=== PATIENT | female | born 1980 | race Caucasian/White ===

== ENCOUNTER 2017-02-06 08:05 | Emergency (ER) | payer OTHER ==
[2017-02-06] MEDS ORDERED: KETOROLAC 30 MG/ML 1 ML VIAL IVP STA (08:25)
[2017-02-06] MEDS ORDERED: SODIUM CHLORIDE 0.9% 1,000 ML IV STA (08:25)
--- NOTE | 2017-02-06 08:28 | ED ---
General Adult HPI - General Chief complaint: Back Pain/Injury Stated complaint: lower back pain Time Seen by Provider: 02/06/17 08:15 Source: patient, RN notes reviewed Mode of arrival: wheelchair Limitations: no limitations - History of Present Illness Initial comments: This a 36-year-old female presents emergency Department chief complaint left sided back pain that started on Friday. Patient states pain is progressively gotten worse. Patient's up on care physician yesterday and was told that she was constipated. Patient was given advice to take MiraLAX. She states started taking MiraLAX now she has very loose watery diarrhea and the symptoms seem to be worse. Patient denies any fever, chills. She states it is worse with movement but denies any known injury. Patient states that she did feel some numbness in her leg but denies any bowel or bladder and, so retention. Denies any saddle anesthesias. Patient states that she's had back pain the past but this feels different. She has no history kidney stones. She's had prior section but no other abdominal surgeries. Patient denies any nausea or vomiting. Patient denies chest pain, shortness of breath. She did take some iron for another day with no relief of the symptoms. - Related Data Home Medications Medication Instructions Recorded Confirmed Escitalopram [Lexapro] 10 mg PO DAILY 02/06/17 02/06/17 Ibuprofen [Motrin] 800 mg PO Q6HR PRN 02/06/17 02/06/17 Levothyroxine Sodium [Synthroid] 75 mcg PO DAILY 02/06/17 02/06/17 Polyethylene Glycol 3350 [Miralax] 17 gm PO DAILY PRN 02/06/17 02/06/17 Previous Rx's Medication Instructions Recorded Cyclobenzaprine [Flexeril] 10 mg PO TID PRN #15 tab 02/06/17 Hydrocodone/Acetaminophen [[place] 1 tab PO Q6HR PRN #20 tab 02/06/17 5-325] Allergies Allergy/AdvReac Type Severity Reaction Status Date / Time latex Allergy Unknown Rash/Hives, Verified 02/06/17 08:26 Itching Review of Systems ROS Statement: Those systems with pertinent positive or pertinent negative responses have been documented in the HPI. ROS Other: All systems not noted in ROS Statement are negative. Past Medical History Past Medical History: Thyroid Disorder Additional Past Medical History / Comment(s): ENVIRONMENTAL ALLERGIES. Ovarian cysts History of Any Multi-Drug Resistant Organisms: None Reported Past Surgical History: Section Additional Past Surgical History / Comment(s): DEVIATED SEPTUM 1996, INTRA VITRO FERTILIZATION X3. Past Anesthesia/Blood Transfusion Reactions: Motion Sickness, Postoperative Nausea & Vomiting (PONV) Additional Past Anesthesia/Blood Transfusion Reaction / Comment(s): STATES SHE HAD A SPINAL AND HAD PONV ,AND SEVERE SHAKING. Past Psychological History: Depression Smoking Status: Former smoker Past Alcohol Use History: None Reported Additional Past Alcohol Use History / Comment(s): NO ALCOHOL WITH . Past Drug Use History: None Reported General Exam General appearance: alert, in no apparent distress Head exam: Present: atraumatic, normocephalic, normal inspection Respiratory exam: Present: normal lung sounds bilaterally. Absent: respiratory distress, wheezes, rales, rhonchi, stridor Cardiovascular Exam: Present: regular rate, normal rhythm, normal heart sounds. Absent: systolic murmur, diastolic murmur, rubs, gallop, clicks GI/Abdominal exam: Present: soft, tenderness (Mild tenderness left side of the abdomen), normal bowel sounds. Absent: distended, guarding, rebound, rigid Back exam: Present: full ROM (With moderate discomfort), CVA tenderness (L), paraspinal tenderness. Absent: CVA tenderness (R), vertebral tenderness Neurological exam: Present: alert, oriented X3, CN II-XII intact Skin exam: Present: warm, dry, intact, normal color. Absent: rash Course Vital Signs 02/06/17 02/06/17 08:09 09:27 Temperature 97.4 F L 97.3 F L Pulse Rate 88 72 Respiratory 18 16 Rate Blood Pressure 115/71 125/71 O2 Sat by Pulse 95 95 Oximetry Medical Decision Making - Medical Decision Making 36-year-old female presents emergency Department chief complaint of back pain. Patient does have mild abdominal discomfort. She was told that she had constipation yesterday. X-ray does not reveal any constipation. Patient CT is unremarkable. Patient does have a hematuria though this is most likely related to her menstrual cycle. Patient is to have muscle skeletal back pain. Patient be discharged with muscle relaxer, pain medication. Return parameters were discussed. - Lab Data Result diagrams: 02/06/17 08:30 02/06/17 08:30 Lab Results 02/06/17 02/06/17 02/06/17 Range/Units 08:30 08:30 08:30 WBC 11.1 H (3.8-10.6) k/uL RBC 4.87 (3.80-5.40) m/uL Hgb 15.0 (11.4-16.0) gm/dL Hct 45.5 (34.0-46.0) % MCV 93.3 (80.0-100.0) fL MCH 30.8 (25.0-35.0) pg MCHC 32.9 (31.0-37.0) g/dL RDW 12.1 (11.5-15.5) % Plt Count 200 (150-450) k/uL Neutrophils % 80 % Lymphocytes % 12 % Monocytes % 5 % Eosinophils % 1 % Basophils % 0 % Neutrophils # 8.9 H (1.3-7.7) k/uL Lymphocytes # 1.4 (1.0-4.8) k/uL Monocytes # 0.6 (0-1.0) k/uL Eosinophils # 0.1 (0-0.7) k/uL Basophils # 0.0 (0-0.2) k/uL Sodium 142 (137-145) mmol/L Potassium 4.2 (3.5-5.1) mmol/L Chloride 110 H (98-107) mmol/L Carbon Dioxide 22 (22-30) mmol/L Anion Gap 10 mmol/L BUN 13 (7-17) mg/dL Creatinine 0.87 (0.52-1.04) mg/dL Est GFR (MDRD) Af Amer >60 (>60 ml/min/1.73 sqM) Est GFR (MDRD) Non-Af >60 (>60 ml/min/1.73 sqM) Glucose 103 H (74-99) mg/dL Calcium 9.7 (8.4-10.2) mg/dL Total Bilirubin 0.6 (0.2-1.3) mg/dL AST 19 (14-36) U/L ALT 27 (9-52) U/L Alkaline Phosphatase 90 (38-126) U/L Total Protein 8.1 (6.3-8.2) g/dL Albumin 4.4 (3.5-5.0) g/dL Amylase 74 (30-110) U/L Lipase 104 (23-300) U/L Urine Color Urine Appearance (Clear) Urine pH (5.0-8.0) Ur Specific [place] (1.001-1.035) Urine Protein (Negative) Urine Glucose (UA) (Negative) Urine Ketones (Negative) Urine Blood (Negative) Urine Nitrite (Negative) Urine Bilirubin (Negative) Urine Urobilinogen (<2.0) mg/dL Ur Leukocyte Esterase (Negative) Urine RBC (0-5) /hpf Urine WBC (0-5) /hpf Ur Squamous Epith Cells (0-4) /hpf Urine Mucus (None) /hpf Urine HCG, Qual Not Detected (Not Detectd) 02/06/17 Range/Units 08:30 WBC (3.8-10.6) k/uL RBC (3.80-5.40) m/uL Hgb (11.4-16.0) gm/dL Hct (34.0-46.0) % MCV (80.0-100.0) fL MCH (25.0-35.0) pg MCHC (31.0-37.0) g/dL RDW (11.5-15.5) % Plt Count (150-450) k/uL Neutrophils % % Lymphocytes % % Monocytes % % Eosinophils % % Basophils % % Neutrophils # (1.3-7.7) k/uL Lymphocytes # (1.0-4.8) k/uL Monocytes # (0-1.0) k/uL Eosinophils # (0-0.7) k/uL Basophils # (0-0.2) k/uL Sodium (137-145) mmol/L Potassium (3.5-5.1) mmol/L Chloride (98-107) mmol/L Carbon Dioxide (22-30) mmol/L Anion Gap mmol/L BUN (7-17) mg/dL Creatinine (0.52-1.04) mg/dL Est GFR (MDRD) Af Amer (>60 ml/min/1.73 sqM) Est GFR (MDRD) Non-Af (>60 ml/min/1.73 sqM) Glucose (74-99) mg/dL Calcium (8.4-10.2) mg/dL Total Bilirubin (0.2-1.3) mg/dL AST (14-36) U/L ALT (9-52) U/L Alkaline Phosphatase (38-126) U/L Total Protein (6.3-8.2) g/dL Albumin (3.5-5.0) g/dL Amylase (30-110) U/L Lipase (23-300) U/L Urine Color Yellow Urine Appearance Clear (Clear) Urine pH 5.0 (5.0-8.0) Ur Specific [place] 1.014 (1.001-1.035) Urine Protein Negative (Negative) Urine Glucose (UA) Negative (Negative) Urine Ketones Negative (Negative) Urine Blood Large H (Negative) Urine Nitrite Negative (Negative) Urine Bilirubin Negative (Negative) Urine Urobilinogen <2.0 (<2.0) mg/dL Ur Leukocyte Esterase Negative (Negative) Urine RBC 174 H (0-5) /hpf Urine WBC 2 (0-5) /hpf Ur Squamous Epith Cells 1 (0-4) /hpf Urine Mucus Rare H (None) /hpf Urine HCG, Qual (Not Detectd) Disposition Clinical Impression: Back pain, Musculoskeletal pain Disposition: HOME SELF-CARE Condition: Stable Instructions: Acute Low Back Pain (ED) Additional Instructions: Please return to the Emergency Department if symptoms worsen or any other concerns. Prescriptions: Cyclobenzaprine [Flexeril] 10 mg PO TID PRN #15 tab PRN Reason: Muscle Spasm Hydrocodone/Acetaminophen [[place] 5-325] 1 tab PO Q6HR PRN #20 tab PRN Reason: Pain Time of Disposition: 10:24
[2017-02-06 08:47] LABS: Basophils % (A) 0 %; CH 31.3; CHCM 33.7; Eosinophils # (A) 0.1 k/uL (0-0.7); Eosinophils % (A) 1 %; HCT 45.5 % (34.0-46.0); HDW 2.26; Luc # (Auto) 0.09; Luc % (Auto) 1; Lymphocytes # (A) 1.4 k/uL (1.0-4.8); Lymphocytes % (A) 12 %; MCH 30.8 pg (25.0-35.0); MCHC 32.9 g/dL (31.0-37.0); MCV 93.3 fL (80.0-100.0); Mean Platelet Volume 7.9; Monocytes # (A) 0.6 k/uL (0-1.0); Monocytes % (A) 5 %; Neutrophils # (A) 8.9 k/uL (1.3-7.7); Neutrophils % (A) 80 %; RBC 4.87 m/uL (3.80-5.40); RDW 12.1 % (11.5-15.5); WBC 11.1 k/uL (3.8-10.6); WBC (Perox) 11.14
[2017-02-06 08:57] LABS: ALT 27 U/L (9-52); AST 19 U/L (14-36); Alkaline Phosphatase 90 U/L (38-126); Amylase 74 U/L (30-110); Anion Gap 10 mmol/L; Blood Urea Nitrogen 13 mg/dL (7-17); Calcium 9.7 mg/dL (8.4-10.2); Carbon Dioxide 22 mmol/L (22-30); Chloride 110 mmol/L (98-107); Glucose 103 mg/dL (74-99); Non-African American GFR(MDRD) >60 (>60 ml/min/1.73 sqM); Potassium 4.2 mmol/L (3.5-5.1); Sodium 142 mmol/L (137-145); Total Bilirubin 0.6 mg/dL (0.2-1.3); Total Protein 8.1 g/dL (6.3-8.2)
[2017-02-06 09:28] VITALS: RESP 16
[2017-02-06 09:30] LABS: Appearance,Urine Clear (Clear); Bilirubin,Urine Negative (Negative); Glucose,Urine (UA) Negative (Negative); Ketones,Urine Negative (Negative); Leukocyte Esterase,Urine Negative (Negative); Mucus,Urine Rare /hpf; Nitrite,Urine Negative (Negative); Particle Count 1726; Protein,Urine Negative (Negative); RBC,Urine 174 /hpf (0-5); Specific Gravity,Urine 1.014 (1.001-1.035); Squamous Epithelial Cell,Urine 1 /hpf (0-4); UA Billing (MACRO vs. MICRO) MICRO; Urobilinogen,Urine <2.0 mg/dL (<2.0); WBC,Urine 2 /hpf (0-5)
--- NOTE | 2017-02-06 09:44 | XR ---
EXAMINATION TYPE: XR KUB DATE OF EXAM: 02/06/2017 9:20 AM CLINICAL DATA: 36-year-old female with abdominal pain, PHH COMPARISON: None FINDINGS: Lung bases are clear. No evidence for free intraperitoneal air. Some small air-fluid levels are noted within the colon. No dilated bowel. No significant stool burden . No suspicious calcifications. IMPRESSION: 1. No evidence of bowel obstruction or free intraperitoneal air. 2. Small air-fluid levels in the colon could represent enteritis or mild ileus.
--- NOTE | 2017-02-06 10:18 | CT ---
EXAMINATION TYPE: CT abdomen pelvis wo con DATE OF EXAM: 02/06/2017 10:03 AM COMPARISON: NONE INDICATION: Patient complains of low back pain and constipation. DLP: 992.3 mGycm, Automated exposure control for dose reduction was used. CONTRAST: None Study performed without Oral Contrast TECHNIQUE: Axial images were obtained from above the diaphragm to the pubic rami in the axial plane a t 5 mm thick sections. Reconstructed images are reviewed on the computer in the coronal plane. FINDINGS: Limited CT sections are obtained the lung bases. The lung bases are clear. CT ABDOMEN: Liver: Normal Spleen: Normal Pancreas: Normal Adrenal glands: The adrenal glands are normal. Gallbladder: Normal Kidneys: No masses are evident. No hydronephrosis is present. No cysts are present. No renal stone s are evident. Aorta: Normal Inferior vena cava: Normal. CT PELVIS: Loops of bowel within the abdomen and pelvis are normal. Lack oral contrast limits evaluation of bowel loops. No significant fecal retention is evident. Couple of diverticuli within the sigmoid colo n without acute diverticulitis. Appendix: Normal as visualized. Urinary bladder: Normal. Genitourinary structures: Uterus and ovaries are normal. Osseous structures: No suspicious lytic or sclerotic lesions. Lumbar spine has minimal degenerative d isc change L5-S1 IMPRESSIONS: 1. Unremarkable noncontrast CT abdomen and pelvis.
[2017-02-06 10:41] VITALS: BP 120/70; PULSE 70; TEMP 98
== END 2017-02-06 10:40 | disposition home or self-care (01) ==
LOC: EC 08:05
DX: M54.5 Low back pain (principal); R20.0 Anesthesia of skin; E07.9 Disorder of thyroid, unspecified; F32.9 Major depressive disorder, single episode, unspecified; Z87.891 Personal history of nicotine dependence; Z79.899 Other long term (current) drug therapy; Z91.040 Latex allergy status
CPT/HCPCS: 99284; 96374; 96361 ×2; 36415; 80053; 82150; 83690; 85025; 81001; 81025; 74000; 74176; J1885

== ENCOUNTER 2017-04-11 07:44 | Day surgery (SDC) | payer OTHER ==
[2017-04-09 14:35] VITALS: BMI 34.9
[~2017-04-11 07:44] MED LIST: LACTATED RINGERS 1,000 ML IV SCH
[2017-04-11 07:54] VITALS: TEMP 98
[2017-04-11] MEDS ORDERED: LACTATED RINGERS 1,000 ML IV ONE (07:54)
[2017-04-11] MEDS ORDERED: LIDOCAINE 1% 20 ML VIAL (10MG/ML) FOR IV START INTRADERMA ONE (08:03)
[2017-04-11] MEDS ORDERED: PROPOFOL 10 MG/ML 20 ML VIAL IV ONE (08:47)
[2017-04-11] MEDS ORDERED: MIDAZOLAM 2 MG/2 ML VIAL ONE (08:47)
[2017-04-11] MEDS ORDERED: LIDOCAINE 1% INJ 10MG/ML (20 ML MDV) ONE (08:47)
[2017-04-11] MEDS ORDERED: fentaNYL (PF) 50 MCG/ML 2 ML AMP ONE (08:47)
--- NOTE | 2017-04-11 09:00 | P.GSHP ---
History of Present Illness H&P Date: 04/11/17 Chief Complaint: Family history of colon cancer, constipation this is a 29-year-old female who presents today for colonoscopy. Patient re has hi family history of colon cancer. She's had issues with constipation. Past Medical History Past Medical History: Musculoskeletal Disorder, Thyroid Disorder Additional Past Medical History / Comment(s): Ovarian cysts History of Any Multi-Drug Resistant Organisms: None Reported Past Surgical History: Section Additional Past Surgical History / Comment(s): DEVIATED SEPTUM 1996, INTRA VITRO FERTILIZATION X3; pain procedures Past Anesthesia/Blood Transfusion Reactions: Motion Sickness, Postoperative Nausea & Vomiting (PONV) Additional Past Anesthesia/Blood Transfusion Reaction / Comment(s): STATES SHE HAD A SPINAL AND HAD PONV ,AND SEVERE SHAKING. Smoking Status: Current every day smoker - Past Family History Mother Family Medical History: No Reported History Medications and Allergies Home Medications Medication Instructions Recorded Confirmed Type Escitalopram [Lexapro] 10 mg PO DAILY 02/06/17 04/09/17 History Ibuprofen [Motrin] 800 mg PO Q6HR PRN 02/06/17 04/09/17 History Levothyroxine Sodium [Synthroid] 75 mcg PO DAILY 02/06/17 04/09/17 History Polyethylene Glycol 3350 [Miralax] 17 gm PO DAILY PRN 02/06/17 04/09/17 History Gabapentin [Neurontin] 200 mg PO TID 04/09/17 04/09/17 History Allergies Allergy/AdvReac Type Severity Reaction Status Date / Time latex Allergy Unknown Rash/Hives, Verified 04/09/17 13:10 Itching Surgical - Exam Vital Signs Temp Pulse Resp BP Pulse Ox 98.0 F 89 18 122/80 99 04/11/17 07:53 04/11/17 07:53 04/11/17 07:53 04/11/17 07:53 04/11/17 07:53 - General well developed, no distress - Eyes PERRL - ENT normal pinna - Neck no masses - Respiratory normal expansion - Cardiovascular Rhythm: regular - Abdomen Abdomen: soft, non tender Assessment and Plan Plan: test patient, family history: Cancer. We'll perform colonoscopy.
--- NOTE | 2017-04-11 09:10 | P.OP ---
Date of Procedure: 04/11/17 Preoperative Diagnosis: family history of colon cancer Constipation Postoperative Diagnosis: diverticulosis Procedure(s) Performed: on anoscopy Implants: Anesthesia: MAC Surgeon: Juan J Alvarenga Pathology: none sent Condition: stable Disposition: PACU Indications for Procedure: Operative Findings: Description of Procedure: the patient's placed on the endoscopy table in the lateral position. She received IV sedation. Digital rectal exam was performed which revealed no abnormalities. The flexible colonoscope was then placed patient anus passed throughout the entire colon. The ileocecal valve was visualized. The cecum, ascending and transverse colon appeared normal. In the descending; was mild diverticular changes. The scope was then brought back the rectum and this appeared normal. Scope was withdrawn for patient.
[2017-04-11 09:33] VITALS: BP 108/67; PULSE 69; RESP 16
== END 2017-04-11 09:53 | disposition home or self-care (01) ==
LOC: ORWHC2ENDO 07:44
PROVIDERS: ATTEND Surgery
DX: K57.30 Diverticulosis of large intestine without perforation or abscess without bleeding (principal); K59.00 Constipation, unspecified; Z80.0 Family history of malignant neoplasm of digestive organs; E07.9 Disorder of thyroid, unspecified; F17.200 Nicotine dependence, unspecified, uncomplicated; Z79.899 Other long term (current) drug therapy; Z91.040 Latex allergy status
CPT/HCPCS: 81025; 45378; J2250; J2001; J3010; J2704

== ENCOUNTER → 2017-04-28 | Outpatient (CLI) | payer OTHER ==
--- NOTE | 2017-04-28 09:44 | MM ---
Reason for exam: screening (asymptomatic). Baseline mammogram. History: Family history of breast cancer in maternal grandmother and breast cancer in paternal grandmother. Physical Findings: Nurse did not find any significant physical abnormalities on exam. MG Screening Mammo w CAD Bilateral CC and MLO view(s) were taken. There are scattered fibroglandular densities. No suspicious calcifications are seen. Nodularity upper inner left breast. These results were verbally communicated with the patient and result sheet given to the patient on 04/28/17. ASSESSMENT: Incomplete: need additional imaging evaluation, BI-RAD 0 RECOMMENDATION: Special view mammogram of the left breast. If lesion persists on supplemental views, image directed ultrasound is recommended. [facility] will attempt to contact patient to return for supplemental views and ultrasound if indicated.
--- NOTE | 2017-04-28 09:45 | MM ---
Reason for exam: additional evaluation requested from abnormal screening. History: Family history of breast cancer in maternal grandmother and breast cancer in paternal grandmother. Physical Findings: Breast exam preformed at baseline screening. MG Work Up Mamm w CAD LT LM, spot compression MLO, and spot compression CC view(s) were taken of the left breast. Nodularity persists in the upper inner quadrant left breast for which an ultrasound is recommended. These results were verbally communicated with the patient and result sheet given to the patient on 04/28/17. ASSESSMENT: Incomplete: need additional imaging evaluation, BI-RAD 0 RECOMMENDATION: Ultrasound of the left breast.
--- NOTE | 2017-04-28 09:47 | USB ---
Reason for exam: additional evaluation requested from abnormal screening. History: Family history of breast cancer in maternal grandmother and breast cancer in paternal grandmother. US Breast Workup Limited LT Left breast ultrasound demonstrates no cystic or solid lesion seen, because nodule persists on mammography stereo core biopsy recommended. These results were verbally communicated with the patient and result sheet given to the patient on 04/28/17. ASSESSMENT: Suspicious, BI-RAD 4 RECOMMENDATION: Stereotactic core biopsy of the left breast. Called Dr. Liao with mammographic findings and has scheduled an appointment for the patient for 05/02/17 at 2:[address] Alvarenga. PRELIMINARY REPORT CALLED AND FAXED TO DR. ALVARENGA ON 04/28/17 /TMP.
== END ==
LOC: RADMAMWWP 08:11
PROVIDERS: ATTEND Family Medicine
DX: Z12.31 Encounter for screening mammogram for malignant neoplasm of breast (principal); R92.8 Other abnormal and inconclusive findings on diagnostic imaging of breast
CPT/HCPCS: 76642; G0202; G0206

== ENCOUNTER → 2017-05-05 | Day surgery (SDC) | payer OTHER ==
[2017-05-05 13:56] VITALS: RESP 12; TEMP 98.5; BMI 34.9
[2017-05-05 14:36] VITALS: BP 111/70; PULSE 86
--- NOTE | 2017-05-05 15:38 | MM ---
EXAMINATION TYPE: MG stereo VAD BX LT DATE OF EXAM: 05/05/2017 COMPARISON: Previous mammogram dated 04/28/2017 CLINICAL HISTORY: Abnormal mammogram TECHNIQUE: Stereotactic guided core biopsy of left breast. FINDINGS: The procedure of stereotactic guided core biopsy was explained to the patient. Benefits, a lternatives, and risks were discussed. An informed consent was then obtained. [facility]. Shortness pathway was a CC approach. I performed the lo calization, then surgeon, Dr. Benitez performed the remainder of the procedure. A vacuum assisted b iopsy gun was used to obtain multiple core samples. The patient tolerated the procedure well without any immediate complication. The patient was kept in the radiology department for short stay after the procedure and then discharged home in stable condi tion. Targeted calcifications are identified in specimen mammogram. Post biopsy mammogram shows the clip to appear in satisfactory position relative to the targeted area of concern on the preprocedure images. IMPRESSION: SUCCESSFUL, UNCOMPLICATED STEREOTACTIC GUIDED CORE BIOPSY OF AREA OF CONCERN IN THE LEFT BREAST, FULL PATHOLOGY RESULTS TO FOLLOW.
--- NOTE | 2017-05-05 17:25 | P.OP ---
Date of Procedure: 05/05/17 Preoperative Diagnosis: Abnormal left mammogram Postoperative Diagnosis: Defer to pathology Procedure(s) Performed: Left breast core biopsy Implants: Anesthesia: JULIUS Surgeon: Juan J Alvarenga Pathology: other (Left breast core biopsy) Condition: stable Disposition: PACU Indications for Procedure: Operative Findings: Description of Procedure: The patient's placed in the mammotome table in the prone position. Her left breast up entirely by the radiologist. The breast was anesthetized 1% local Xylocaine. The needle was entered into the target area. Sequential core biopsies were performed. A clip was placed in the breast. Patient top procedure well.
== END ==
LOC: RADMAMWWP 13:25
PROVIDERS: ATTEND Surgery
DX: D24.2 Benign neoplasm of left breast (principal); R92.8 Other abnormal and inconclusive findings on diagnostic imaging of breast; N60.32 Fibrosclerosis of left breast; N64.89 Other specified disorders of breast; Z91.040 Latex allergy status
CPT/HCPCS: 88305; 19081; A4648

== ENCOUNTER → 2018-05-14 | Outpatient (CLI) | payer OTHER ==
--- NOTE | 2018-05-19 17:18 | ENG ---
ELECTRONYSTAGMOGRAM REPORT ATTENDING PHYSICIAN: Dr. Juan David Reed. VNG INDICATIONS: This is a 38-year-old female with vertigo and dizziness starting with a syncopal episode on 04/06/2018. Dizziness is improving. She has 1 spell per day, lasting for 1- 2 minutes at a time. Dizziness can be triggered by rolling over in bed and right or left, turning the head left to right, movements of the head. Denies any hearing loss. Has tinnitus in the right ear of a steady nature and fullness in both ears. VNG FINDINGS: SACCADES: Saccades shows intact peak velocities, accuracies and latencies. GAZE TEST: Gaze with fixation shows no nystagmus in any of the directions of gaze including centrally with vision denied. SINUSOIDAL TRACKING: Tracking shows no break-ups. OKN TEST: Optokinetic nystagmus shows no asymmetry. POSITION TESTING: Static position testing in 6 different positions with eyes open and then with vision denied and exhibits no nystagmus. ANGELINA HALLPIKE: Angelina-Hallpike maneuvers are negative bilaterally. CALORIC TEST: Caloric testing shows 10% unilateral left caloric weakness which is within normal limits. IMPRESSION: Unremarkable VNG study. No evidence for any central nervous system or vestibular abnormalities. MMODL / IJN: [id number] /
== END | disposition home or self-care (01) ==
LOC: NEUROMAIN 06:46
PROVIDERS: ATTEND Otolaryngology
DX: R42 Dizziness and giddiness (principal)
CPT/HCPCS: 92537; 92540

== ENCOUNTER 2019-03-03 16:28 | Emergency (ER) | payer OTHER ==
[2019-03-03 17:34] VITALS: RESP 16
[2019-03-03] MEDS ORDERED: LIDOCAINE 1% INJ 10MG/ML (20 ML MDV) SQ ONE (18:24)
[2019-03-03] MEDS ORDERED: SULFAMETH-TMP DS STARTER PACK 2 TAB BTL PO STA (19:30)
[2019-03-03] MEDS ORDERED: CEPHALEXIN 500MG STARTER PACK 4 CAP BTL PO STA (19:30)
--- NOTE | 2019-03-03 19:30 | ED ---
General Adult HPI - General Chief complaint: Skin/Abscess/Foreign Body Stated complaint: Boil on Groin Time Seen by Provider: 03/03/19 18:14 Source: patient, RN notes reviewed Mode of arrival: ambulatory Limitations: no limitations - History of Present Illness Initial comments: 39-year-old female presents to the emergency department for a chief complaint of abscess in the pubic area. Patient states that 5 days ago she started to notice this. States she thought it was a bug bite in her groin. States that it has gotten progressively worse. Patient saw provider at [facility] and they recommended she come to the emergency department for incision and drainage. Apparently they did squeeze the abscess but did not open it. No fevers or chil ls. No pain with movement of the leg. She states she has never had anything like this before. Patient has no other complaints at this time including shortness of breath, chest pain, abdominal pain, nausea or vomiting, headache, or visual changes. - Related Data Home Medications Medication Instructions Recorded Confirmed Levothyroxine Sodium [Synthroid] 75 mcg PO DAILY 02/06/17 03/03/19 Cholecalciferol [Vitamin D3 (25 1,000 unit PO DAILY 03/03/19 03/03/19 Mcg = 1000 Iu)] Cyanocobalamin (Vitamin B-12) 1,000 mcg PO DAILY 03/03/19 03/03/19 [Vitamin B-12] Fexofenadine HCl [Meghan Allergy] 180 mg PO DAILY 03/03/19 03/03/19 Naproxen Sodium [Aleve] 220 mg PO Q12HR PRN 03/03/19 03/03/19 buPROPion HCL [Wellbutrin XL] 150 mg PO DAILY 03/03/19 03/03/19 Previous Rx's Medication Instructions Recorded Cephalexin [Keflex] 500 mg PO Q6HR 10 Days cap 03/03/19 Sulfamethox-Tmp 800-160Mg [Bactrim 1 tab PO Q12HR #20 tab 03/03/19 DS 800-160 mg] Allergies Allergy/AdvReac Type Severity Reaction Status Date / Time latex Allergy Unknown Rash/Hives, Verified 03/03/19 19:09 Itching Review of Systems ROS Statement: Those systems with pertinent positive or pertinent negative responses have been documented in the HPI. ROS Other: All systems not noted in ROS Statement are negative. Past Medical History Past Medical History: Musculoskeletal Disorder, Thyroid Disorder Additional Past Medical History / Comment(s): Ovarian cysts History of Any Multi-Drug Resistant Organisms: None Reported Past Surgical History: Section Additional Past Surgical History / Comment(s): DEVIATED SEPTUM 1996, INTRA VITRO FERTILIZATION X3; pain procedures Past Anesthesia/Blood Transfusion Reactions: Motion Sickness, Postoperative Nausea & Vomiting (PONV) Additional Past Anesthesia/Blood Transfusion Reaction / Comment(s): STATES SHE HAD A SPINAL AND HAD PONV ,AND SEVERE SHAKING. Past Psychological History: Depression Smoking Status: Current every day smoker Past Alcohol Use History: Rare Past Drug Use History: None Reported - Past Family History Mother Family Medical History: No Reported History General Exam Limitations: no limitations General appearance: alert, in no apparent distress Head exam: Present: atraumatic, normocephalic, normal inspection Eye exam: Present: normal appearance, PERRL, EOMI. Absent: scleral icterus, conjunctival injection, periorbital swelling ENT exam: Present: normal exam, mucous membranes moist Neck exam: Present: normal inspection, full ROM. Absent: tenderness, meningismus, lymphadenopathy Respiratory exam: Present: normal lung sounds bilaterally. Absent: respiratory distress, wheezes, rales, rhonchi, stridor Cardiovascular Exam: Present: regular rate, normal rhythm, normal heart sounds. Absent: systolic murmur, diastolic murmur, rubs, gallop, clicks GI/Abdominal exam: Present: soft, normal bowel sounds. Absent: distended, tenderness, guarding, rebound, rigid External exam: Present: other (Patient has a 6 cm x 4 cm fluctuant abscess in the left suprapubic area) Neurological exam: Present: alert, oriented X3, CN II-XII intact Psychiatric exam: Present: normal affect, normal mood Course Vital Signs 03/03/19 17:31 Temperature 98.5 F Pulse Rate 94 Respiratory 16 Rate Blood Pressure 136/84 O2 Sat by Pulse 96 Oximetry Procedures - Incision & Drainage Consent Obtained: verbal consent Indication: Abscess Site: other (Suprapubic) Size (cm): 6 Anesthetic Used: lidocaine 1% Amount (mLs): 5 I&D Cleaning Method: Chloroprep Sterile Field Used?: Yes Scalpel Used: #11 I&D Drainage Obtained: Pus Packing: Iodoform Medical Decision Making - Medical Decision Making 39-year-old female presents for abscess in the left suprapubic area 5 days. Patient did see [facility] who sent her here for incision and drainage no fevers or chills. No difficulty moving the left leg. Abscess is about 6 x 4 cm noted in the left suprapubic area. Does not appear to be a lymph node. Dr. Gannon also visualized the abscess and agrees on simple incision and drainage. I was able to successfully incise and drain this and it was packed with iodoform. Patient will be started on Bactrim and Keflex, denies any ALLERGIES. Patient will follow up with primary care and return here if she has any worsening symptoms. Disposition Clinical Impression: Abscess Disposition: HOME SELF-CARE Condition: Good Instructions (If sedation given, give patient instructions): Abscess Incision and Drainage (ED) Additional Instructions: Please take antibiotics as directed. Remove packing in 2 days. Please monitor for worsening infection such as spreading redness or increasing size of abscess and return if these occur. Prescriptions: Sulfamethox-Tmp 800-160Mg [Bactrim DS 800-160 mg] 1 tab PO Q12HR #20 tab Cephalexin [Keflex] 500 mg PO Q6HR 10 Days cap Is patient prescribed a controlled substance at d/c from ED?: No Referrals: Luna Liao DO [Primary Care Provider] - 1-2 days Time of Disposition: 19:28
[2019-03-03 19:54] VITALS: BP 130/66; PULSE 67; TEMP 98
== END 2019-03-03 19:54 | disposition home or self-care (01) ==
LOC: EC 16:28
DX: L02.211 Cutaneous abscess of abdominal wall (principal); E07.9 Disorder of thyroid, unspecified; F32.9 Major depressive disorder, single episode, unspecified; F17.200 Nicotine dependence, unspecified, uncomplicated; Z79.890 Hormone replacement therapy; Z79.899 Other long term (current) drug therapy; Z91.040 Latex allergy status
CPT/HCPCS: 99282; 10060; J2001

== ENCOUNTER → 2020-11-23 | Outpatient (CLI) | payer OTHER ==
--- NOTE | 2020-11-24 11:41 | MM ---
Reason for exam: screening (asymptomatic). Last mammogram was performed 3 years and 7 months ago. History: Family history of breast cancer in maternal grandmother and breast cancer in paternal grandmother. Benign MG stereo VAD BX LT of the left breast, May 05, 2017. Physical Findings: A clinical breast exam by your physician is recommended on an annual basis and results should be correlated with mammographic findings. MG Screening Mammo w CAD Bilateral CC and MLO view(s) were taken. Prior study comparison: April 28, 2017, left breast MG work up mamm w CAD LT. April 28, 2017, bilateral MG screening mammo w CAD. The breast tissue is heterogeneously dense. This may lower the sensitivity of mammography. There is no discrete abnormality. No significant changes when compared with prior studies. ASSESSMENT: Negative, BI-RAD 1 RECOMMENDATION: Routine screening mammogram of both breasts in 1 year.
== END | disposition home or self-care (01) ==
LOC: RADMAMWWP 08:21
PROVIDERS: ATTEND Family Medicine
DX: Z12.31 Encounter for screening mammogram for malignant neoplasm of breast (principal)
CPT/HCPCS: 77067

== ENCOUNTER → 2021-07-24 | Outpatient (CLI) | payer BC ==
--- NOTE | 2021-07-24 11:27 | US ---
EXAMINATION TYPE: US carotid duplex BILAT DATE OF EXAM: 07/24/2021 COMPARISON: NONE CLINICAL HISTORY: M54.2 Neck Pain. EXAM MEASUREMENTS: RIGHT: Peak Systolic Velocity (PSV) cm/sec ----- Right CCA: 127. ----- Right ICA: 115. ----- Right ECA: 147. ICA/CCA ratio: 0.9 RIGHT: End Diastole cm/sec ----- Right CCA: 39.7 ----- Right ICA: 39.7 ----- Right ECA: 35.5 LEFT: Peak Systolic Velocity (PSV) cm/sec ----- Left CCA: 101.4 ----- Left ICA: 95.2 ----- Left ECA: 120.5 ICA/CCA ratio: 0.9 LEFT: End Diastole cm/sec ----- Left CCA: 37.7 ----- Left ICA: 48.9 ----- Left ECA: 34.7 VERTEBRALS (direction of flow): Right Vertebral: Antegrade Left Vertebral: Antegrade Rhythm: Normal No significant plaque visualized, no significant velocity increases seen bilaterally. IMPRESSION: No significant atherosclerotic change or hemodynamic significant stenosis in either inte rnal carotid artery . Criteria for Assigning % of Stenosis / Diameter reduction (Estimation based on the indirect measurements of the internal carotid artery velocities (ICA PSV). 1. Normal (no stenosis)=ICA PSV < 125 cm/s: ratio < 2.0: ICA EDV<40 cm/s. 2. Less than 50% stenosis=ICA PSV < 125 cm/s: ratio < 2.0: ICA EDV<40 cm/s. 3. 50 to 69% stenosis=ICA PSV of 125 to 230 cm/s: ration 2.0 ? 4.0: ICA EDV 40-100 cm/s. 4. Greater than 70% stenosis to near occlusion= ICA PSV > 230 cm/s: ratio > 4.0: ICA EDV > 100 cm/s. 5. Near occlusion= ICA PSV velocities may be low or undetectable: variable ratio and ICA EDV. 6. Total occlusion=unable to detect flow.
--- NOTE | 2021-07-24 11:31 | US ---
EXAMINATION TYPE: US thyroid st tissue head/neck DATE OF EXAM: 07/24/2021 COMPARISON: Prior thyroid ultrasound May 13, 2013 CLINICAL HISTORY: M54.2 Neck Pain. GLAND SIZE: Right Lobe: 4.4 x 1.2 x 1.4 cm Overall Parenchyma: homogenous Left Lobe: 4.8 x 1.0 x 1.5 cm Overall Parenchyma: homogeneous Isthmus Thickness: 0.2 cm NODULES RIGHT: # of nodules measured on right: 0 LEFT: # of nodules measured on left: 3 1. 0.7 X 0.4 x 0.4 cm, mid, solid or almost completely solid, hypoechoic nodule, which is wider marcelo n tall, with smooth margins, without echogenic foci. 2. 0.5 X 0.3 x 0.4 cm, mid, solid or almost completely solid, hypoechoic nodule, which is wider th an tall, with smooth margins, without echogenic foci. 3. 0.8 X 0.6 x 0.8 cm, lower, solid or almost completely solid, hypoechoic nodule, which is wider t nevarez tall, with ill-defined margins, without echogenic foci. ISTHMUS: # of nodules measured in the isthmus: 0 Bilateral neck scanned, no evidence of lymphadenopathy. Normal-sized thyroid redemonstrated with scattered small nodules again seen. IMPRESSION: As above. No new greater than 1 cm thyroid nodules.
== END | disposition home or self-care (01) ==
LOC: RADUSWWP 10:25
PROVIDERS: ATTEND Family Medicine
DX: E04.2 Nontoxic multinodular goiter (principal); M54.2 Cervicalgia
CPT/HCPCS: 76536; 93880

== ENCOUNTER 2021-12-10 07:43 | Day surgery (SDC) | payer BC ==
[2021-12-06 18:07] VITALS: BMI 39.9
--- NOTE | 2021-12-07 15:09 | HP ---
HISTORY AND PHYSICAL HISTORY: This is a 41-year-old 3, para 2-0-1-2 woman with a history of worsening menometrorrhagia. She is scheduled to undergo diagnostic hysteroscopy and NovaSure endometrial ablation. She has had bilateral tubal occlusion for contraception. Endometrial biopsy was benign. Pelvic ultrasound shows uterus measuring 5.3 x 4.0 x 9.4 cm. Normal adnexa. She has been counseled regarding options and chooses this surgical procedure. ALLERGIES: LATEX causes rash and hives. MEDICATIONS: Synthroid 25 mcg daily, Wellbutrin 150 mg daily. PAST MEDICAL HISTORY: Depression, hypothyroidism, infertility. PAST SURGICAL HISTORY: section x2 with bilateral tubal ligation, deviated septum repair, breast biopsy. SOCIAL HISTORY: She is . Negative for tobacco, alcohol and drug use. FAMILY HISTORY: Significant for heart disease in her father. REVIEW OF SYSTEMS: Complete review of systems negative except for that described in the HPI. PHYSICAL EXAMINATION: Height 5 feet 5 inches, weight 233 pounds, pulse 101, blood pressure 150/80. In general, this is a pleasant female in no acute distress. HEENT exam is unremarkable with no palpable lymphadenopathy or thyromegaly. Her breathing is nonlabored and her lungs are clear to auscultation bilaterally. Her heart has a regular rate and rhythm. The abdomen soft and nontender with no rebound, guarding or flank pain. On pelvic examination, she has normal female external genitalia without lesions or irritation. On bimanual examination, the uterus is small, freely mobile and in the midline. The adnexa are free of any gross lesions. Neurologically the patient is grossly intact and her mood and affect are normal. ASSESSMENT: [id number]-old 2, para 2 woman with menometrorrhagia, scheduled for diagnostic hysteroscopy and NovaSure endometrial ablation for treatment of such. This procedure has been reviewed with the patient in detail in the office setting and consent was obtained. Risks include but are not limited to bleeding, transfusion, infection, uterine perforation, damage to internal structures, including blood vessels, nerves and other pelvic structures. The patient understands that she should not get following this procedure and has a tubal ligation. She is scheduled for this procedure on 12/10/21. MMODL / IJN: [id number] /
[~2021-12-10 07:43] MED LIST changes: +DEXAMETHASONE SOD PHOSPHATE 4 MG/ML 1 ML VIAL IV ONE; +HYDROmorphone 0.5 MG/0.5 ML SYRINGE IVP PRN; +LIDOCAINE 1% (10MG/ML) FOR IV START INTRADERMA PRN; +MIDAZOLAM 2 MG/2 ML VIAL IV PRN; +ONDANSETRON 4 MG/2 ML VIAL IVP ONE; +Pre Op ABX Message 1 EACH MISC MISCELLANE ONE
[2021-12-10] MEDS ORDERED: SCOPOLAMINE 1.5MG/72HR PATCH TRANSDERM ONE (08:20)
[2021-12-10] MEDS ORDERED: LIDOCAINE 1%-EPI 1:100,000 20 ML VIAL SQ ONE (08:36)
[2021-12-10] MEDS ORDERED: MIDAZOLAM 2 MG/2 ML VIAL ONE (08:50)
[2021-12-10] MEDS ORDERED: fentaNYL (PF) 50 MCG/ML 2 ML AMP ONE (08:50)
[2021-12-10] MEDS ORDERED: LIDOCAINE 1% INJ 10MG/ML (20 ML MDV) ONE (08:50)
[2021-12-10] MEDS ORDERED: PROPOFOL 10 MG/ML 20 ML VIAL IV ONE (08:50)
[2021-12-10 09:44] VITALS: TEMP 97.8
--- NOTE | 2021-12-10 09:51 | P.OP ---
Date of Procedure: 12/10/21 Preoperative Diagnosis: Menometrorrhagia Postoperative Diagnosis: Menometrorrhagia Asherman syndrome Procedure(s) Performed: Diagnostic hysteroscopy Anesthesia: MAC Surgeon: Delfina Colvin Estimated Blood Loss (ml): 20 Urine output (ml): 50 Pathology: none sent Condition: stable Disposition: PACU Indications for Procedure: Menometrorrhagia Operative Findings: Under anesthetic uterus was sounded only to 5.5 cm. The cervix was able to be dilated to allow for passage of the diagnostic hysteroscope however the intrauterine cavity appeared restricted with fluffy endometrium. There was no clear view of the bilateral tubal ostia. Review of preoperative ultrasound was reviewed and anticipated uterus measuring approximately 9 x 4 x 5 cm. There was no evidence of false passage created by the sound or hysteroscope nor evidence of uterine perforation. The NovaSure ablation device did not fully deploy also indicating a restricted cavity. 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 Description of Procedure: After the patient was met in the preoperative holding area and all questions were answered, she was taken the operating room where anesthetic was administered without incident. She was in positioned, prepped and draped in the dorsal lithotomy position. Bladder was drained for approximately 50 mL of clear urine. Exam under anesthetic was undertaken and is limited by the patient's body habitus. The weighted speculum was placed in the vagina and the cervix was grasped anteriorly with a single-tooth tenaculum. On uterus was sounded only to initially 5.5 cm. The cervix was then further dilated using Hegar dilators to allow for passage of the diagnostic hysteroscope. The uterus is anticipated to be larger than this and on hysteroscopy I was looking for direct visualization of the internal cervical os. With introduction of the hysteroscope I do believe I was intrauterine however the endometrium appeared fluffy but not constricted and bilateral tubal ostia were not easily visualized. Very meticulous and slow inspection of the entire cervical canal indicated no evidence of a false passage created. The hysteroscope was removed and the uterine sound was again gently introduced and the sound was to 6.5 cm. The preoperative ultrasound was reviewed and anticipated uterine cavity of approximately 9 x 5 x 4 cm. The NovaSure wand was introduced however the array could not fully deployed again indicating a constricted cavity. The device was removed and the hysteroscope was again introduced with similar findings as above. 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 He did not feel it was appropriate to continue to attempt the procedure therefore all instruments were removed from the vagina and the patient was awoken from anesthetic and transported to recovery room in good condition. All counts were correct.
[2021-12-10] MEDS ORDERED: KETOROLAC 15 MG/ML 1 ML VIAL IVP ONE (10:27)
[2021-12-10] MEDS ORDERED: LACTATED RINGERS 1,000 ML IV ONE (10:54)
[2021-12-10 11:13] VITALS: RESP 20
[2021-12-10] MEDS ORDERED: ACETAMINOPHEN TAB 325 MG TAB ONE (11:21)
[2021-12-10] MEDS ORDERED: ACETAMINOPHEN TAB 325 MG TAB PO ONE (11:30)
[2021-12-10 11:58] VITALS: BP 128/74; PULSE 80
== END 2021-12-10 12:04 | disposition home or self-care (01) ==
LOC: OR 07:43
PROVIDERS: ATTEND Obstetrics & Gynecology
DX: N92.1 Excessive and frequent menstruation with irregular cycle (principal); N85.6 Intrauterine synechiae; F17.200 Nicotine dependence, unspecified, uncomplicated; E07.9 Disorder of thyroid, unspecified
CPT/HCPCS: 58555; 81025; J2250; J1100; J2405; J2001; J3010; J1885; J2704

== ENCOUNTER → 2022-05-04 | Outpatient (CLI) | payer BC ==
--- NOTE | 2022-05-04 10:42 | XR ---
EXAMINATION TYPE: XR chest 2V DATE OF EXAM: 05/04/2022 10:37 AM COMPARISON: None TECHNIQUE: XR chest 2V Frontal and lateral views of the chest. CLINICAL INDICATION:Female, 42 years old with history of [id number]; FINDINGS: Lungs/Pleura: There is no evidence of pleural effusion, focal consolidation, or pneumothorax. Pulmonary vascularity: Unremarkable. Heart/mediastinum: Cardiomediastinal silhouette is unremarkable. Musculoskeletal: No acute osseous pathology. IMPRESSION: No acute cardiopulmonary disease/process.
[2022-05-04 16:24] LABS: Appearance,Urine Turbid (Clear); Bacteria,Urine None Seen /HPF (None Seen); Bilirubin,Urine Negative (Negative); Blood,Urine Large (Negative); Color,Urine Yellow (Yellow); Ketones,Urine Trace mg/dL (Negative); Nitrite,Urine Negative (Negative); PH, Urine 5.5 (5.0-8.0); Specific Gravity,Urine 1.026 (1.001-1.030)
[2022-05-04 17:03] LABS: HCT 44.6 % (37.2-46.3); MCH 29.4 pg (27.0-32.0); MCHC 31.4 g/dL (32.0-37.0); MCV 93.5 fL (80.0-97.0); Mean Platelet Volume 11.8 fL (9.5-12.2); NRBC Per 100 WBC 0 /100 WBCS (0.0-0.0); Platelet Count 216 X 10*3/uL (140-440); RBC 4.77 X 10*6/uL (4.10-5.20); RDW 12.3 % (11.5-14.5); WBC 10.71 X 10*3/uL (4.50-10.00)
[2022-05-04 18:15] LABS: African American GFR (CKD) 71.2 (60.0-200.0); Albumin 4.2 g/dL (3.8-4.9); Albumin/Globulin Ratio 1.56 (1.60-3.17); Anion Gap 10.5 mmol/L (10.00-18.00); BUN/Creat Ratio 12.18 Ratio (12.00-20.00); Blood Urea Nitrogen 13.4 mg/dL (9.0-27.0); Calcium 9.1 mg/dL (8.7-10.3); Carbon Dioxide 23.5 mmol/L (20.0-27.5); Globulin 2.7 g/dL (1.6-3.3); Non-African American GFR(CKD) 61.4 (60.0-200.0); Potassium 4.1 mmol/L (3.5-5.5); Total Bilirubin 0.3 mg/dL (0.30-1.20); Total Protein 6.9 g/dL (6.2-8.2)
[2022-05-04 20:48] LABS: Cancer Antigen 125 15.5 U/mL (0.0-30.1)
== END | disposition home or self-care (01) ==
LOC: RADXRMAIN 10:18
PROVIDERS: ATTEND Obstetrics & Gynecology Gynecologic Oncology
DX: Z01.812 Encounter for preprocedural laboratory examination (principal)
CPT/HCPCS: 71046; 80053; 81001; 82378; 85027; 86304; 86850; 86900; 86901; 87086; 93005

== ENCOUNTER → 2022-05-18 | Outpatient (CLI) | payer BC ==
[2022-05-18 17:31] LABS: Hepatitis B Surface Antigen Nonreactive (Nonreactive); Hepatitis C IgG Antibody Nonreactive (Nonreactive)
[2022-05-18 17:37] LABS: ALT 21 U/L (8-44); AST 15 U/L (13-35); Albumin 4.1 g/dL (3.8-4.9); Albumin/Globulin Ratio 1.56 (1.60-3.17); Alkaline Phosphatase 95 U/L (41-126); Bilirubin, Conjugated <0.20 mg/dL (0.20-0.40); Chol/HDL Ratio 5.51 Ratio; Globulin 2.6 g/dL (1.6-3.3); LDL Cholesterol,Calculated 119.5 mg/dL (0.0-131.0); Total Protein 6.6 g/dL (6.2-8.2)
[2022-05-18 17:48] LABS: Hepatitis B Surface Antibody Reactive (Nonreactive)
== END | disposition home or self-care (01) ==
LOC: LABWHC1 08:14
PROVIDERS: ATTEND Dermatology
DX: L40.0 Psoriasis vulgaris (principal)
CPT/HCPCS: 36415; 80061; 80076; 86480; 86704; 86706; 86803; 87340

== ENCOUNTER → 2022-09-06 | Outpatient (CLI) | payer BC ==
--- NOTE | 2022-09-09 08:36 | MM ---
Reason for Exam: Screening (asymptomatic). Last mammogram was performed 1 year(s) and 9 month(s) ago. Patient History: Menarche at age 12. First Full-Term at age 29. Late child-bearing (after 30). Hysterectomy at age 41. 05/05/2017, Benign Core Biopsy on the left side. Paternal grandmother had breast cancer. Maternal grandmother had breast cancer. Risk Values: Luda 5 year model risk: 1.6%. NCI Lifetime model risk: 15.9%. Prior Study Comparison: 04/28/2017 Bilateral Screening Mammogram, [facility]. 04/28/2017 Left Diagnostic Mammogram, [facility]. 11/23/2020 Bilateral Screening Mammogram, [facility]. Tissue Density: There are scattered fibroglandular densities. Findings: Analyzed By CAD. Biopsy clip left breast noted. There is no suspicious new group of microcalcifications or new suspicious mass in either breast. Overall Assessment: Benign, BI-RAD 2 Management: Screening Mammogram of both breasts in 1 year. A clinical breast exam by your physician is recommended on an annual basis and results should be correlated with mammographic findings. Electronically signed and approved by: Erci Brown M.D.
== END | disposition home or self-care (01) ==
LOC: RADMAMWWP 08:23
PROVIDERS: ATTEND Family Medicine
DX: Z12.31 Encounter for screening mammogram for malignant neoplasm of breast (principal); Z80.3 Family history of malignant neoplasm of breast
CPT/HCPCS: 77067

== ENCOUNTER → 2023-09-08 | Outpatient (CLI) | payer BC ==
--- NOTE | 2023-09-09 12:18 | MM ---
Reason for Exam: Screening (asymptomatic). Last screening mammogram was performed 12 month(s) ago. Patient History: Menarche at age 12. First Full-Term at age 29. Late child-bearing (after 29). Hysterectomy at age 41. 05/05/2017, Benign Core Biopsy on the left side. Paternal grandmother had breast cancer. Maternal grandmother had breast cancer. Risk Values: Luda 5 year model risk: 1.7%. NCI Lifetime model risk: 15.8%. Prior Study Comparison: 04/28/2017 Left Diagnostic Mammogram, [facility]. 11/23/2020 Bilateral Screening Mammogram, [facility]. 09/06/2022 Bilateral MG screening mammo w CAD, [facility]. Tissue Density: There are scattered fibroglandular densities. Findings: Analyzed By CAD. There is no suspicious group of microcalcifications or new suspicious mass in either breast. Overall Assessment: Negative, BI-RAD 1 Management: Screening Mammogram of both breasts in 1 year. . Patient should continue monthly self-breast exams. A clinical breast exam by your physician is recommended on an annual basis. This exam should not preclude additional follow-up of suspicious palpable abnormalities. Note on Luda scores and lifetime risk: 1. A Luda score greater than 3% is considered moderate risk. If this is the case, consider specialist referral to assess eligibility for a risk reducing agent. 2. If overall lifetime risk for the development of breast cancer is 20% or higher, the patient may qualify for future screening with alternating mammogram and breast MRI. Electronically signed and approved by: Edwin Gibson M.D. Radiologis
== END | disposition home or self-care (01) ==
LOC: RADMAMWWP 07:29
PROVIDERS: ATTEND Family Medicine
DX: Z12.31 Encounter for screening mammogram for malignant neoplasm of breast (principal); Z80.3 Family history of malignant neoplasm of breast
CPT/HCPCS: 77063; 77067

== ENCOUNTER 2024-12-29 20:10 | Emergency (ER) | payer BC ==
[2024-12-29 20:15] VITALS: RESP 18; TEMP 98
[2024-12-29 22:27] LABS: Appearance,Urine Clear (Clear); Bacteria,Urine Rare /hpf; Bilirubin,Urine Negative (Negative); Blood,Urine Small (Negative); Budding Yeast,Urine Rare /hpf; Color,Urine Colorless; Glucose,Urine (UA) Negative (Negative); Ketones,Urine Negative (Negative); Leukocyte Esterase,Urine Trace (Negative); Nitrite,Urine Negative (Negative); PH, Urine 5.5 (5.0-8.0); Protein,Urine Negative (Negative); RBC,Urine 2 /hpf (0-5); Specific Gravity,Urine 1.007 (1.001-1.035); Squamous Epithelial Cell,Urine 1 /hpf (0-4); Urobilinogen,Urine <2.0 mg/dL (<2.0); WBC,Urine 3 /hpf (0-5)
[2024-12-29 22:29] LABS: Basophils % (A) 1 %; Eosinophils # (A) 0.3 k/uL (0-0.7); Eosinophils % (A) 3 %; HCT 44.1 % (34.0-46.0); Lymphocytes # (A) 2.8 k/uL (1.0-4.8); Lymphocytes % (A) 33 %; MCH 31.4 pg (25.0-35.0); MCV 92.4 fL (80.0-100.0); Mean Platelet Volume 8.1; Monocytes # (A) 0.6 k/uL (0-1.0); Monocytes % (A) 7 %; Neutrophils # (A) 4.8 k/uL (1.3-7.7); Neutrophils % (A) 56 %; Platelet Count 186 k/uL (150-450); RBC 4.78 m/uL (3.80-5.40); RDW 11.6 % (11.5-15.5); WBC 8.6 k/uL (3.8-10.6)
[2024-12-29 22:34] LABS: ALT 22 U/L (4-34); AST 19 U/L (14-36); African American GFR (CKD) 88 (>60 ml/min/1.73 sqM); Albumin 4.3 g/dL (3.5-5.0); Alkaline Phosphatase 81 U/L (38-126); Anion Gap 9 mmol/L; Blood Urea Nitrogen 15 mg/dL (7-17); Calcium 9.4 mg/dL (8.4-10.2); Carbon Dioxide 27 mmol/L (22-30); Chloride 103 mmol/L (98-107); Glucose 101 mg/dL (74-99); Magnesium 2.1 mg/dL (1.6-2.3); Non-African American GFR(CKD) 76 (>60 ml/min/1.73 sqM); Potassium 4.1 mmol/L (3.5-5.1); Sodium 139 mmol/L (137-145); Total Bilirubin 0.4 mg/dL (0.2-1.3); Total Protein 7.5 g/dL (6.3-8.2)
[2024-12-29 23:07] LABS: Influenza A Not Detected (Not Detectd); Influenza B Not Detected (Not Detectd); RSV Not Detected (Not Detectd)
--- NOTE | 2024-12-29 23:29 | CT ---
EXAMINATION TYPE: CT abdomen pelvis wo con DATE OF EXAM: 12/29/2024 10:28 PM COMPARISON: CT abdomen pelvis most recent from 02/06/2017 CLINICAL INDICATION: Female, 44 years old with history of Right flank pain; right flank pain TECHNIQUE: Axial CT abdomen pelvis wo con;Sagittal and coronal reformats were created on a separate workstation. Contrast used: mL of , (none if empty) Oral contrast used: without Oral Contrast (none if empty) CT DLP: 1026.2 mGycm, Automated exposure control for dose reduction was used. FINDINGS: LOWER CHEST: Unremarkable ABDOMEN LIVER: Unremarkable GALLBLADDER AND BILE DUCTS: Unremarkable. PANCREAS: Unremarkable. SPLEEN: Unremarkable. ADRENAL GLANDS: Unremarkable. KIDNEYS AND URETERS: No evidence of hydronephrosis or renal calculus. The ureters are unremarkable. PELVIS BLADDER: No evidence for wall thickening or mass given limitations of exam. REPRODUCTIVE: Unremarkable. ABDOMEN & PELVIS STOMACH AND BOWEL: . Scattered diverticula are noted throughout the colon. No evidence of bowel obstr uction. The appendix is surgically absent. PERITONEUM/RETROPERITONEUM: No evidence of pneumoperitoneum or free fluid. VASCULATURE: No evidence of aortic aneurysm. MUSCULOSKELETAL: No acute osseous abnormalities. Mild disc degeneration changes are present throughou t the thoracolumbar spine. Transitional vertebrae at L5 LYMPH NODES: No gross evidence for lymphadenopathy. SOFT TISSUE/ABDOMINAL WALL: Unremarkable IMPRESSION: 1. No evidence for acute abdominal process. The appendix is surgically absent. 2. No obstructive uropathy or renal calculus. 3. Colonic diverticulosis. [facility], , 12/29/2024 11:27 PM
--- NOTE | 2024-12-29 23:52 | ED ---
Back Pain HPI - General Chief Complaint: Back Pain/Injury Stated Complaint: low back pain Time Seen by Provider: 12/29/24 20:42 Source: patient Limitations: no limitations - Related Data Home Medications Medication Instructions Recorded Confirmed Levothyroxine Sodium [Synthroid] 75 mcg PO DAILY 02/06/17 12/06/21 Cholecalciferol [Vitamin D3 (25 1,000 unit PO DAILY 03/03/19 12/06/21 Mcg = 1000 Iu)] buPROPion HCL [Wellbutrin XL] 300 mg PO DAILY 03/03/19 12/06/21 Vitamin C (Unknown Dose) 1 tab PO DAILY 12/06/21 Allergies Allergy/AdvReac Type Severity Reaction Status Date / Time latex Allergy Unknown Rash/Hives, Verified 12/29/24 20:15 Itching Review of Systems ROS Statement: Those systems with pertinent positive or pertinent negative responses have been documented in the HPI. ROS Other: All systems not noted in ROS Statement are negative. Past Medical History Past Medical History: Musculoskeletal Disorder, Thyroid Disorder Additional Past Medical History / Comment(s): Ovarian cysts History of Any Multi-Drug Resistant Organisms: None Reported Past Surgical History: Section Additional Past Surgical History / Comment(s): DEVIATED SEPTUM 1996, INTRA VITRO FERTILIZATION X3; pain procedures Past Anesthesia/Blood Transfusion Reactions: Motion Sickness, Postoperative Nausea & Vomiting (PONV) Additional Past Anesthesia/Blood Transfusion Reaction / Comment(s): STATES SHE HAD A SPINAL AND HAD PONV ,AND SEVERE SHAKING. Past Psychological History: Depression Smoking Status: Current every day smoker Past Alcohol Use History: Rare Past Drug Use History: None Reported - Past Family History Mother Family Medical History: No Reported History General Exam Limitations: no limitations Course Vital Signs 12/29/24 20:12 Temperature 98.0 F Pulse Rate 99 Respiratory 18 Rate Blood Pressure 154/81 O2 Sat by Pulse 98 Oximetry Medical Decision Making - Lab Data Result diagrams: 12/29/24 22:09 12/29/24 22:09 Lab Results 12/29/24 12/29/24 12/29/24 Range/Units 22:09 22:09 22:09 WBC 8.6 (3.8-10.6) k/uL RBC 4.78 (3.80-5.40) m/uL Hgb 15.0 (11.4-16.0) gm/dL Hct 44.1 (34.0-46.0) % MCV 92.4 (80.0-100.0) fL MCH 31.4 (25.0-35.0) pg MCHC 34.0 (31.0-37.0) g/dL RDW 11.6 (11.5-15.5) % Plt Count 186 (150-450) k/uL MPV 8.1 Neutrophils % 56 % Lymphocytes % 33 % Monocytes % 7 % Eosinophils % 3 % Basophils % 1 % Neutrophils # 4.8 (1.3-7.7) k/uL Lymphocytes # 2.8 (1.0-4.8) k/uL Monocytes # 0.6 (0-1.0) k/uL Eosinophils # 0.3 (0-0.7) k/uL Basophils # 0.0 (0-0.2) k/uL Sodium 139 (137-145) mmol/L Potassium 4.1 (3.5-5.1) mmol/L Chloride 103 (98-107) mmol/L Carbon Dioxide 27 (22-30) mmol/L Anion Gap 9 mmol/L BUN 15 (7-17) mg/dL Creatinine 0.91 (0.52-1.04) mg/dL Est GFR (CKD-EPI)AfAm 88 (>60 ml/min/1.73 sqM) Est GFR (CKD-EPI)NonAf 76 (>60 ml/min/1.73 sqM) Glucose 101 H (74-99) mg/dL Plasma Lactic Acid Kristopher (0.7-2.0) mmol/L Calcium 9.4 (8.4-10.2) mg/dL Magnesium 2.1 (1.6-2.3) mg/dL Total Bilirubin 0.4 (0.2-1.3) mg/dL AST 19 (14-36) U/L ALT 22 (4-34) U/L Alkaline Phosphatase 81 (38-126) U/L Total Protein 7.5 (6.3-8.2) g/dL Albumin 4.3 (3.5-5.0) g/dL TSH 3.390 (0.465-4.680) mIU/L Urine Color Colorless Urine Appearance Clear (Clear) Urine pH 5.5 (5.0-8.0) Ur Specific Howell 1.007 (1.001-1.035) Urine Protein Negative (Negative) Urine Glucose (UA) Negative (Negative) Urine Ketones Negative (Negative) Urine Blood Small H (Negative) Urine Nitrite Negative (Negative) Urine Bilirubin Negative (Negative) Urine Urobilinogen <2.0 (<2.0) mg/dL Ur Leukocyte Esterase Trace H (Negative) Urine RBC 2 (0-5) /hpf Urine WBC 3 (0-5) /hpf Ur Squamous Epith Cells 1 (0-4) /hpf Urine Bacteria Rare H (None) /hpf Urine Yeast (Budding) Rare H (None) /hpf Heterophile Antibody (Negative) Influenza Type A (PCR) (Not Detectd) Influenza Type B (PCR) (Not Detectd) RSV (PCR) (Not Detectd) SARS-CoV-2 (PCR) (Not Detectd) 12/29/24 12/29/24 12/29/24 Range/Units 22:09 22:09 22:09 WBC (3.8-10.6) k/uL RBC (3.80-5.40) m/uL Hgb (11.4-16.0) gm/dL Hct (34.0-46.0) % MCV (80.0-100.0) fL MCH (25.0-35.0) pg MCHC (31.0-37.0) g/dL RDW (11.5-15.5) % Plt Count (150-450) k/uL MPV Neutrophils % % Lymphocytes % % Monocytes % % Eosinophils % % Basophils % % Neutrophils # (1.3-7.7) k/uL Lymphocytes # (1.0-4.8) k/uL Monocytes # (0-1.0) k/uL Eosinophils # (0-0.7) k/uL Basophils # (0-0.2) k/uL Sodium (137-145) mmol/L Potassium (3.5-5.1) mmol/L Chloride (98-107) mmol/L Carbon Dioxide (22-30) mmol/L Anion Gap mmol/L BUN (7-17) mg/dL Creatinine (0.52-1.04) mg/dL Est GFR (CKD-EPI)AfAm (>60 ml/min/1.73 sqM) Est GFR (CKD-EPI)NonAf (>60 ml/min/1.73 sqM) Glucose (74-99) mg/dL Plasma Lactic Acid Kristopher 0.8 (0.7-2.0) mmol/L Calcium (8.4-10.2) mg/dL Magnesium (1.6-2.3) mg/dL Total Bilirubin (0.2-1.3) mg/dL AST (14-36) U/L ALT (4-34) U/L Alkaline Phosphatase (38-126) U/L Total Protein (6.3-8.2) g/dL Albumin (3.5-5.0) g/dL TSH (0.465-4.680) mIU/L Urine Color Urine Appearance (Clear) Urine pH (5.0-8.0) Ur Specific Howell (1.001-1.035) Urine Protein (Negative) Urine Glucose (UA) (Negative) Urine Ketones (Negative) Urine Blood (Negative) Urine Nitrite (Negative) Urine Bilirubin (Negative) Urine Urobilinogen (<2.0) mg/dL Ur Leukocyte Esterase (Negative) Urine RBC (0-5) /hpf Urine WBC (0-5) /hpf Ur Squamous Epith Cells (0-4) /hpf Urine Bacteria (None) /hpf Urine Yeast (Budding) (None) /hpf Heterophile Antibody Negative (Negative) Influenza Type A (PCR) Not Detected (Not Detectd) Influenza Type B (PCR) Not Detected (Not Detectd) RSV (PCR) Not Detected (Not Detectd) SARS-CoV-2 (PCR) Not Detected (Not Detectd) Disposition Clinical Impression: Lumbar back pain Disposition: HOME SELF-CARE Condition: Good Instructions (If sedation given, give patient instructions): Acute Low Back Pain (ED) Additional Instructions: Follow-up with your PCP. Report back to ER with any new or worsening symptoms. Motrin and Tylenol as needed for pain control. Heat and ice as needed. Is patient prescribed a controlled substance at d/c from ED?: No Referrals: Luna Liao DO [Primary Care Provider] - 1-2 days Time of Disposition: 23:52
[2024-12-30 00:02] VITALS: BP 139/88; PULSE 72
== END 2024-12-29 23:59 | disposition home or self-care (01) ==
LOC: EC 20:10
DX: M54.50 Low back pain, unspecified (principal); F17.200 Nicotine dependence, unspecified, uncomplicated; Z91.040 Latex allergy status
CPT/HCPCS: 36415; 74176; 80053; 81001; 83605; 83735; 84443; 85025; 86308; 87636; 99284